=== PATIENT | male | born 1960 | race Caucasian/White ===

== ENCOUNTER 2018-02-12 11:09 | Emergency (ER) | payer BC ==
[2018-02-12 12:06] LABS: Absolute Lymphocytes (CBC) 0.9 K/uL (0.7-4.9); Absolute Monocytes 0.6 K/uL (0.1-1.3); Absolute Neutrophil 8.4 K/uL (1.8-8.0); Basophils % 0.4 % (0-1.3); Hematocrit 42.5 % (39.6-49.0); Lymphocytes % 8.7 % (15.3-44.8); MCH 31.1 pg (27.0-35.0); MCV 89.8 fL (80-100); MPV 9.1 fL (7.6-11.3); Monocytes % 5.6 % (3.3-12.3); RBC Red Blood Cell Count 4.74 M/uL (4.33-5.43)
[2018-02-12] MEDS ORDERED: NA CHLORIDE 0.9% 1,000 ML ONE (12:06)
[2018-02-12 12:22] LABS: Bicarbonate 25 mEq/L (21-31); Potassium 4.1 mEq/L (3.6-5.0); Sodium Level 134 mEq/L (135-145)
[2018-02-12 12:23] LABS: BUN Blood Urea Nitrogen 17 mg/dL (6-20); Glomerular Filtration Rate > 90 mL/min (=/>90); Lipase 26 U/L (22-51)
[2018-02-12 12:37] LABS: Glucose Level 414 mg/dL (65-120)
--- NOTE | 2018-02-12 13:40 | EDPHYS ---
Physician Documentation [facility] Name: Suraj Weinberg Age: 58 yrs Sex: Male : 1960 Arrival Date: 02/12/2018 Time: 11:15 Bed 17 Private MD: ED Physician González Munoz HPI: 02/12 11:40 This 58 yrs old Male presents to ER via Ambulatory with complaints of high rn blood sugar. 11:40 Reports high blood sugar for some time, unknown duration, states had hernia surgery rn yesterday, told glucose was in 200s, told to f/u with pcp, this morning checked glucose, was in 200s again, ate, then went up to 400s, states multiple bouts of pancreatitis and was told his pancreas was poorly functioning in past by pancreas specialist. . 11:40 Reports generalized weakness, fatigue, and urinating alot. rn Historical: - Allergies: 11:20 Morphine; la1 - Home Meds: 11:20 Creon 36,000-114,000- 180,000 unit oral cpDR 2 caps 3 times per day [Active]; la1 - PMHx: 11:20 Pancreatitis; la1 - PSHx: 11:20 Hernia repair; back sx; Cholecystectomy; la1 - Immunization history:: Adult Immunizations up to date. - Social history:: Smoking status: Patient/guardian denies using tobacco. - Family history:: not pertinent. - Hospitalizations: : No recent hospitalization is reported. ROS: 11:40 Constitutional: Negative for fever, chills, and weight loss, Eyes: Negative for injury, rn pain, redness, and discharge, Neck: Negative for injury, pain, and swelling, Cardiovascular: Negative for chest pain, palpitations, and edema, Respiratory: Negative for shortness of breath, cough, wheezing, and pleuritic chest pain, Abdomen/GI: Negative for abdominal pain, nausea, vomiting, diarrhea, and constipation, Back: Negative for injury and pain, MS/Extremity: Negative for injury and deformity, Skin: Negative for injury, rash, and discoloration, Neuro: Negative for headache, numbness, tingling, and seizure. Exam: 11:40 Constitutional: This is a well developed, well nourished patient who is awake, alert, rn and in no acute distress. Head/Face: Normocephalic, atraumatic. Eyes: Pupils equal round and reactive to light, extra-ocular motions intact. Lids and lashes normal. Conjunctiva and sclera are non-icteric and not injected. Cornea within normal limits. Periorbital areas with no swelling, redness, or edema. ENT: dry MM Cardiovascular: Regular rate and rhythm with a normal S1 and S2. No gallops, murmurs, or rubs. Normal PMI, no JVD. No pulse deficits. Respiratory: Lungs have equal breath sounds bilaterally, clear to auscultation and percussion. No rales, rhonchi or wheezes noted. No increased work of breathing, no retractions or nasal flaring. Abdomen/GI: Soft, non-tender, with normal bowel sounds. No distension or tympany. No guarding or rebound. No evidence of tenderness throughout. MS/ Extremity: Pulses equal, no cyanosis. Neurovascular intact. Full, normal range of motion. Equal circumference. Neuro: Awake and alert, GCS 15, oriented to person, place, time, and situation. Cranial nerves II-XII grossly intact. Motor strength 5/5 in all extremities. Sensory grossly intact. Vital Signs: 11:20 BP 157 / 93; Pulse 86; Resp 16; Temp 98.2(TE); Pulse Ox 97% on R/A; la1 12:08 BP 126 / 90; Pulse 84; Resp 16; Pulse Ox 96% on R/A; mh5 12:50 BP 137 / 86; Pulse 82; Resp 15; Pulse Ox 100% on R/A; Pain 0/10; hb MDM: 11:23 Patient medically screened. rn 13:36 Differential Diagnosis hyperglycemia, dehydration. Data reviewed: vital signs, nurses rn notes, lab test result(s), EKG, and as a result, I will discharge patient. Counseling: I had a detailed discussion with the patient and/or guardian regarding: the historical points, exam findings, and any diagnostic results supporting the discharge/admit diagnosis, lab results, the need for outpatient follow up, to return to the emergency department if symptoms worsen or persist or if there are any questions or concerns that arise at home. Response to treatment: the patient's symptoms have mildly improved after treatment, and as a result, I will discharge patient. Special discussion: I discussed with the patient/guardian in detail that at this point there is no indication for admission to the hospital. It is understood, however, that if the symptoms persist or worsen the patient needs to return immediately for re-evaluation. ED course: Pt improved with fluids, glucose down to 330, had just eaten, normally has been in 200s lately, will defer initiation of diabetic medication to PCP or his pancreas specialist.. 02/12 11:26 Order name: Glucose, Ancillary Testing; Complete Time: 11:36 EDNM 02/12 11:37 Order name: CBC with Diff rn 02/12 11:37 Order name: Basic Metabolic Panel rn 02/12 11:37 Order name: Osmolality, Serum rn 02/12 11:37 Order name: Hemoglobin A1c rn 02/12 11:37 Order name: Ketone, Serum rn 02/12 11:37 Order name: Lipase rn 02/12 12:08 Order name: CBC with Automated Diff; Complete Time: 12:28 EDNM 02/12 12:22 Order name: Basic Metabolic Panel; Complete Time: 13:19 EDNM 02/12 12:23 Order name: Lipase; Complete Time: 13:19 EDNM 02/12 13:03 Order name: Acetone Level; Complete Time: 13:19 EDNM 02/12 13:07 Order name: Osmolality, Serum; Complete Time: 13:19 EDNM 02/12 11:37 Order name: IV Start; Complete Time: 12:48 rn Administered Medications: 12:20 Drug: NS 0.9% 1000 ml Route: IV; Rate: 1000 ml; Site: left forearm; hb 14:00 Follow up: Response: No adverse reaction; IV Status: Completed infusion hb 13:55 Drug: metFORMIN 500 mg Route: PO; ss 13:56 Follow up: Response: Medication administered at discharge. hb Point of Care Testing: Blood Glucose: 11:25 Blood Glucose: 338 mg/dL; hb Ranges: Critical Glucose Levels:Adult <50 mg/dl or >400 mg/dl <40 mg/dl or >180 mg/dl Disposition: 02/12/18 13:38 Discharged to Home. Impression: Dehydration, Hyperglycemia, unspecified. - Condition is Stable. - Discharge Instructions: Dehydration, Adult, Hyperglycemia. - Prescriptions for Metformin 500 mg Oral Tablet - take 1 tablet by ORAL route once daily for 7 days Then take 1 tablet with morning meals AND evening meals; 60 tablet. - Medication Reconciliation Form, Thank You Letter, Antibiotic Education, Prescription Opioid Use form. - Follow up: Private Physician; When: As needed; Reason: Recheck today's complaints, Re-evaluation by your physician. - Problem is an ongoing problem. - Symptoms have improved. Signatures: Dispatcher [employer] EDGonzález Diop MD MD rn Smirch, Shelby, RN RN ss Krishan Mclean RN RN la1 Nan Moore RN RN
--- NOTE | 2018-02-12 13:40 | ER ---
Nurse's Notes [facility] Name: Suraj Weinberg Age: 58 yrs Sex: Male : 1960 Arrival Date: 02/12/2018 Time: 11:15 Bed 17 Private MD: Diagnosis: Dehydration;Hyperglycemia, unspecified Presentation: 02/12 11:17 Presenting complaint: Patient states: I had a hernia sx yesterday and my sugars have la1 been high. I also only have about 30% of my pancreas left and my doctor is worried its not functioning properly anymore, pt denies hx of diabetes. Transition of care: patient was not received from another setting of care. Onset of symptoms was February 12, 2018. Care prior to arrival: None. 11:17 Method Of Arrival: Ambulatory la1 11:17 Acuity: DIA 3 la1 Historical: - Allergies: 11:20 Morphine; la1 - Home Meds: 11:20 Creon 36,000-114,000- 180,000 unit oral cpDR 2 caps 3 times per day [Active]; la1 - PMHx: 11:20 Pancreatitis; la1 - PSHx: 11:20 Hernia repair; back sx; Cholecystectomy; la1 - Immunization history:: Adult Immunizations up to date. - Social history:: Smoking status: Patient/guardian denies using tobacco. - Family history:: not pertinent. - Hospitalizations: : No recent hospitalization is reported. Screenin:32 Abuse screen: Denies threats or abuse. Denies injuries from another. Nutritional ph screening: No deficits noted. Tuberculosis screening: No symptoms or risk factors identified. Fall Risk None identified. Assessment: 11:30 General: Appears in no apparent distress. comfortable, slender, well groomed, Behavior ph is calm, cooperative, appropriate for age, Reports blood sugar 430s SAMPLE TESTER Denies fever, feeling ill. Pain: Denies pain. Neuro: Level of Consciousness is awake, alert, obeys commands, Oriented to person, place, time, situation, Reports blurred vision dizziness. Cardiovascular: Denies chest pain, nausea, shortness of breath, Capillary refill < 3 seconds in bilateral fingers Patient's skin is warm and dry. Respiratory: Airway is patent Respiratory effort is even, unlabored, Respiratory pattern is regular, symmetrical. GI: Patient currently denies abdominal pain, diarrhea, nausea, vomiting. Derm: Skin is healthy with good turgor, Skin is pink, warm \T\ dry. Musculoskeletal: Circulation, motion, and sensation intact. Range of motion: intact in all extremities. 12:30 Reassessment: Patient appears in no apparent distress at this time. No changes from hb previously documented assessment. Patient and/or family updated on plan of care and expected duration. Pain level reassessed. Patient is alert, oriented x 3, equal unlabored respirations, skin warm/dry/pink. Patient denies pain at this time. Vital Signs: 11:20 BP 157 / 93; Pulse 86; Resp 16; Temp 98.2(TE); Pulse Ox 97% on R/A; la1 12:08 BP 126 / 90; Pulse 84; Resp 16; Pulse Ox 96% on R/A; mh5 12:50 BP 137 / 86; Pulse 82; Resp 15; Pulse Ox 100% on R/A; Pain 0/10; hb ED Course: 11:15 Patient arrived in ED. sb2 11:19 Triage completed. la1 11:20 Arm band placed on left wrist. la1 11:21 Nan Moore, RN is Primary Nurse. hb 11:23 González Munoz MD is Attending Physician. rn 11:33 Patient has correct armband on for positive identification. Bed in low position. Call ph light in reach. Side rails up X 1. Pulse ox on. NIBP on. Warm blanket given. 11:50 Initial lab(s) drawn, by me, sent to lab. Missed attempt(s): 20 gauge in left hb antecubital area. Bleeding controlled, band aid applied, catheter tip intact. 12:05 Missed attempt(s): 22 gauge in right forearm. mh5 12:39 Inserted saline lock: 20 gauge in left forearm, using aseptic technique. ph Administered Medications: 12:20 Drug: NS 0.9% 1000 ml Route: IV; Rate: 1000 ml; Site: left forearm; hb 14:00 Follow up: Response: No adverse reaction; IV Status: Completed infusion hb 13:55 Drug: metFORMIN 500 mg Route: PO; ss 13:56 Follow up: Response: Medication administered at discharge. hb Point of Care Testing: Blood Glucose: 11:25 Blood Glucose: 338 mg/dL; hb Ranges: Outcome: 13:38 Discharge ordered by . rn 14:17 Patient left the ED. ss Signatures: González Munoz MD MD rn Smirch, Shelby, RN RN ss Krishan Mclean RN RN Cynthia Campo RN RN ph Baxter, Heather, RN RN Arleen Arreola [facility] Sylwia Christie2
[2018-02-12] MEDS ORDERED: METFORMIN HCL 500 MG TAB ONE (14:11)
[2018-02-12 16:47] LABS: A1c Component 0.94 mg/dL
== END 2018-02-12 14:17 | disposition home or self-care (01) ==
LOC: ER 11:09
DX: E86.0 Dehydration (principal); K85.90 Acute pancreatitis without necrosis or infection, unspecified; Z88.5 Allergy status to narcotic agent
CPT/HCPCS: 36415; 80048; 82009; 82962; 83036; 83690; 83930; 85025; 96360; 96361; 99284; J7030